=== PATIENT | female | born 1995 | race Caucasian/White ===

== ENCOUNTER 2016-10-15 20:13 | Emergency (ER) | payer BC, OTHER ==
[~2016-10-15] VITALS: Ht 160 cm; Wt 62.4 kg
[2016-10-15 20:19] VITALS: TEMP 36.7; Ht 160 cm; Wt 62.4 kg
[2016-10-15] MEDS ORDERED: SODIUM CHLORIDE 0.9% 1000ML 1,000 ML IV STA (22:12)
[2016-10-15 22:51] LABS: HEMATOCRIT 39.2 % (37-47); MEAN CELL VOLUME 92.5 fL (80-100); MEAN CORPUSCULAR HEMOGLOBIN 31.8 pg (25-34); MEAN CORPUSCULAR HGB CONC 34.4 g/dl (32-36); MEAN PLATELET VOLUME 10.3 fL (7.4-10.4); PLATELET COUNT 242 K/uL (130-400); RED BLOOD COUNT 4.24 M/uL (4.2-5.4); WHITE BLOOD COUNT 5.22 K/uL (4.8-10.8)
[2016-10-15 23:03] LABS: URINE APPEARANCE CLEAR (CLEAR); URINE BILIRUBIN NEG (NEG); URINE COLOR YELLOW; URINE NITRITE NEG (NEG); URINE PH 6.5 (4.5-7.5); URINE SPECIFIC GRAVITY 1.023 (1.000-1.030); UROBILINOGEN NEG (NEG); ZZUR CULT IF INDIC CLEAN CATCH NO
--- NOTE | 2016-10-15 23:06 | DIAGNOSTIC IMAGING REPORT ---
CHEST ONE VIEW PORTABLE CLINICAL HISTORY: slob, cough cough COMPARISON STUDY: No previous studies for comparison. FINDINGS: The bones soft tissues and hemidiaphragms are normal. The cardiomediastinal silhouette is normal. The lungs are clear. The pulmonary vasculature is normal. IMPRESSION: Negative chest. Electronically signed by: Tonny Mattson M.D. 10/15/2016 11:04 PM Dictated Date/Time: 10/15/2016 11:04 PM
[2016-10-15 23:07] LABS: BLOOD UREA NITROGEN 16 mg/dl (7-18); BUN/CREATININE RATIO 18.6 (10-20); CALCIUM 9.1 mg/dl (8.5-10.1); CARBON DIOXIDE 27 mmol/L (21-32); CHLORIDE 106 mmol/L (98-107); CREATININE 0.86 mg/dl (0.60-1.20); GLUCOSE 92 mg/dl (70-99); POTASSIUM 3.8 mmol/L (3.5-5.1); SODIUM 141 mmol/L (136-145)
[2016-10-15 23:09] LABS: MANUAL MICROSCOPIC REQUIRED? NO; REVIEW REQ? YES
[2016-10-15] MEDS ORDERED: FOLI1TAB7 PO (23:10)
[2016-10-15] MEDS ORDERED: ETONMIS VAGRING (23:10)
[2016-10-15 23:14] LABS: BASO % 0.2 %; BASO ABS # 0.01 K/uL (0-0.2); COMPLETE YES; EOS % 1.5 %; LYMPH % 57.9 %; LYMPH ABS # 3.02 K/uL (1.2-3.4); MONO % 10.2 %; NEUT % 30.2 %
[2016-10-16 00:14] VITALS: BP 117/71; PULSE 77; O2SAT 97
--- NOTE | 2016-10-16 00:19 | EMERGENCY ROOM VISIT NOTE ---
History Report prepared by Maverick: Jannet Naqvi Under the Supervision of: Dr. Deacon Cotto M.D. First contact with patient: 22:05 Chief Complaint: SHORTNESS OF BREATH Stated Complaint: LOWER LF LEG PAIN,SOB,DIZZY Nursing Triage Summary: pt reports LLE pain X 1 week over the past day pain has moved to upper leg, pt also reports increased exertional sob during this time as well , denies dizziness or cp History of Present Illness The patient is a 21 year old female who presents to the Emergency Room with complaints of worsening shortness of breath that started 3-4 days ago. She also developed intermittent chest pain 3-4 days ago. The patient states that she has also been experiencing dizzy spells over the last two days, which she thinks may be a result of increased stress from school. However, she states that the dizzy spells seem to correlate to when she experiences pain in left lower extremity. She states that she has been experiencing intermittent left lower extremity pain since June. The patient developed a cough 3 days ago along with a sore throat. The patient denies any personal history of blood clots, but states that her aunt has experienced multiple strokes. The patient states that she has polycystic ovary syndrome. She also states that she is on control bills and knows that she has an increased risk of blood clots. Her mom is a nurse and thought that she should come in to be evaluated. Source of History: patient Onset: 3-4 days Position: chest Quality: other (shortness of breath) Timing: worsening Associated Symptoms: + cough, + sorethroat Note: dizzy spells, pain in left lower extremity Review of Systems See HPI for pertinent positives & negatives. A total of 10 systems reviewed and were otherwise negative. Past Medical & Surgical Medical Problems: (1) Polycystic ovarian syndrome Family History Stroke Social History Smoking Status: Never Smoker Occupation Status: [employer] student Current/Historical Medications Scheduled Etonogestrel/Ethinyl Estradiol (Nuvaring), 1 EA VAGRING MONTHLY Folic Acid (Folvite), 1 MG PO DAILY Allergies Coded Allergies: No Known Allergies (Unverified , 10/15/16) Physical Exam Vital Signs Date Time Temp Pulse Resp B/P Pulse Ox O2 Delivery O2 Flow Rate FiO2 10/16/16 00:14 77 20 117/71 97 Room Air 10/15/16 20:19 36.7 73 18 148/82 100 Room Air Physical Exam GENERAL: Patient is mildly anxious appearing and in minimal distress. HEENT: No acute trauma, normocephalic atraumatic, mucous membranes moist, no nasal congestion, no scleral icterus. NECK: No stridor, no adenopathy, no meningismus, trachea is midline. LUNGS: No dyspnea. Clear to auscultation and equal bilaterally. No wheeze, no rhonchi. HEART: Regular rate and rhythm. No murmurs, rubs, gallops appreciated. ABDOMEN: Soft, nontender, bowel sounds positive, no masses appreciated, no peritonitis. BACK: No midline tenderness, no CVA tenderness EXTREMITIES: Normal motion all extremities, no cyanosis, no edema. NEUROLOGIC: Alert and oriented, no acute motor or sensory deficits, no focal weakness, cranial nerves grossly intact. SKIN: No rash, no jaundice, no diaphoresis. Medical Decision & Procedures ER Provider Diagnostic Interpretation: Radiology results and stated below per my review and radiologist interpretation: CHEST ONE VIEW PORTABLE IMPRESSION: Negative chest. Electronically signed by: Tonny Mattson M.D. 10/15/2016 11:04 PM Dictated Date/Time: 10/15/2016 11:04 PM US VENOUS LEFT LOWER EXTREMITY: STATRAD IMPRESSION: No sonographic evidence of DVT. Laboratory Results 10/15/16 22:25 Red Blood Count 4.24, Mean Corpuscular Volume 92.5, Mean Corpuscular Hemoglobin 31.8, Mean Corpuscular Hemoglobin Concent 34.4, Mean Platelet Volume 10.3, Neutrophils (%) (Auto) 30.2, Lymphocytes (%) (Auto) 57.9, Monocytes (%) (Auto) 10.2, Eosinophils (%) (Auto) 1.5, Basophils (%) (Auto) 0.2, Neutrophils # (Auto ) 1.58, Lymphocytes # (Auto) 3.02, Monocytes # (Auto) 0.53, Eosinophils # (Auto ) 0.08, Basophils # (Auto) 0.01 10/15/16 22:25 Test 10/15/16 22:12 10/15/16 22:25 Urine Test NEG (NEG) White Blood Count 5.22 K/uL (4.8-10.8) Red Blood Count 4.24 M/uL (4.2-5.4) Hemoglobin 13.5 g/dL (12.0-16.0) Hematocrit 39.2 % (37-47) Mean Corpuscular Volume 92.5 fL (80-100) Mean Corpuscular Hemoglobin 31.8 pg (25-34) Mean Corpuscular Hemoglobin Concent 34.4 g/dl (32-36) Platelet Count 242 K/uL (130-400) Mean Platelet Volume 10.3 fL (7.4-10.4) Neutrophils (%) (Auto) 30.2 % Lymphocytes (%) (Auto) 57.9 % Monocytes (%) (Auto) 10.2 % Eosinophils (%) (Auto) 1.5 % Basophils (%) (Auto) 0.2 % Neutrophils # (Auto) 1.58 K/uL (1.4-6.5) Lymphocytes # (Auto) 3.02 K/uL (1.2-3.4) Monocytes # (Auto) 0.53 K/uL (0.11-0.59) Eosinophils # (Auto) 0.08 K/uL (0-0.5) Basophils # (Auto) 0.01 K/uL (0-0.2) RDW Standard Deviation 42.6 fL (36.4-46.3) RDW Coefficient of Variation 12.5 % (11.5-14.5) Immature Granulocyte % (Auto) 0.0 % Immature Granulocyte # (Auto) 0.00 K/uL (0.00-0.02) Red Blood Cell Morphology Unremarkable D-Dimer < 190 ug/L FEU (0-500) Urine Color YELLOW Urine Appearance CLEAR (CLEAR) Urine pH 6.5 (4.5-7.5) Urine Specific [place] 1.023 (1.000-1.030) Urine Protein NEG (NEG) Urine Glucose (UA) NEG (NEG) Urine Ketones NEG (NEG) Urine Occult Blood NEG (NEG) Urine Nitrite NEG (NEG) Urine Bilirubin NEG (NEG) Urine Urobilinogen NEG (NEG) Urine Leukocyte Esterase NEG (NEG) Urine WBC (Auto) 1-5 /hpf (0-5) Urine RBC (Auto) 0-4 /hpf (0-4) Urine Hyaline Casts (Auto) 1-5 /lpf (0-5) Urine Epithelial Cells (Auto) 10-20 /lpf (0-5) Urine Bacteria (Auto) NEG (NEG) Anion Gap 8.0 mmol/L (3-11) Est Creatinine Clear Calc Drug Dose 86.3 ml/min Estimated GFR () 112.7 Estimated GFR (Non- 97.3 BUN/Creatinine Ratio 18.6 (10-20) Calcium Level 9.1 mg/dl (8.5-10.1) Troponin I < 0.015 ng/ml (0-0.045) Monoscreen NEG (NEG) Laboratory results as reviewed by me. Medications Administered Medications (Trade) Dose Ordered Sig/Annabelle Route Start Time Stop Time Status Last Admin Dose Admin Sodium Chloride (Nss 1000ml) 1,000 ml @ 999 mls/hr Q1H1M STAT IV 10/15/16 22:12 10/15/16 23:12 DC 10/15/16 22:41 999 MLS/HR ECG Indication: SOB/dyspnea Rate (beats per minute): 67 Rhythm: normal sinus Findings: no acute ischemic change, no ectopy ED Course 2206: The patient was evaluated in room B11. A complete history and physical exam was performed. 2211: Ordered Sodium Chloride 1000 ml @ 999 mls/hr IV 0012: Reevaluated the patient. Discussed results and discharge instructions: she verbalized understanding and agreement. The patient is ready for discharge. Medical Decision Differential: DVT, CHF, Arterial Occlusion, Infectious, Joint Effusion, Trauma, Lymphedema, Idiopathic, Trauma, amongst other pathologies entertained. 21 yr old female arrives for evaluation of left calf and hamstring discomfort as well as periodic shortness of breath/cp/exhaustion. Dimer negative and US negative thus I feel this is not DVT nor PE. She has normal vitals with normal dimer thus I do not feel CT PE study indicated. Normal pulses and no evidence acute arterial occlusion. EKG normal and trop negative. CXR clear. Electrolytes look good. Stressed importance of rest, keeping well hydrated and reviewed symptoms requiring return. Impression Primary Impression: Pain of left calf Additional Impressions: Exhaustion Shortness of breath Scribe Attestation The scribe's documentation has been prepared under my direction and personally reviewed by me in its entirety. I confirm that the note above accurately reflects all work, treatment, procedures, and medical decision making performed by me. Departure Information Dispostion Home / Self-Care Referrals DEBORA CASTRO III, D.O. (PCP) Forms HOME CARE DOCUMENTATION FORM, IMPORTANT VISIT INFORMATION Patient Instructions [facility] Additional Instructions We are always here to help. If you feel you have worsening shortness of breath, chest pain, apssing out or other concerns return immediately. If symptoms continue it is important to follow up with your primary care provider for further evaluation. Problem Qualifiers
--- NOTE | 2016-10-16 06:39 | DIAGNOSTIC IMAGING REPORT ---
ULTRASOUND LEFT VENOUS DOPP LOWER EXT UNILAT CLINICAL HISTORY: Left lower leg pain COMPARISON STUDY: No previous studies for comparison. FINDINGS: Real-time and color flow Doppler imaging were performed. Flow was seen within the femoral, popliteal and calf veins with no intraluminal thrombus demonstrated. The saphenous vein is patent. IMPRESSION: No evidence of left lower extremity DVT. Electronically signed by: Addison Coreas M.D. 10/16/2016 6:37 AM Dictated Date/Time: 10/16/2016 6:37 AM
== END 2016-10-16 00:44 | disposition home or self-care (01) ==
LOC: C.EDB 20:15
DX: R06.02 Shortness of breath (principal); M79.662 Pain in left lower leg; R53.83 Other fatigue; E28.2 Polycystic ovarian syndrome; Z79.899 Other long term (current) drug therapy; Z82.3 Family history of stroke